=== PATIENT | female | born 1990 | race African-American/Black ===

== ENCOUNTER 2018-02-22 20:33 | Emergency (ER) | payer OTHER ==
[2018-02-22] MEDS ORDERED: IBUPROFEN 800 MG TABLET PO ONE (22:34)
[2018-02-22] MEDS ORDERED: CYCLOBENZAPRINE HCL 10 MG TABLET PO ONE (22:34)
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
[2018-02-23 00:11] VITALS: BP 113/74
== END 2018-02-22 23:26 | disposition home or self-care (01) ==
LOC: ER 20:33
DX: S80.12XA Contusion of left lower leg, initial encounter (principal); S39.012A Strain of muscle, fascia and tendon of lower back, initial encounter; M79.1 Myalgia; V89.2XXA Person injured in unspecified motor-vehicle accident, traffic, initial encounter
CPT/HCPCS: 71046; 99284